=== PATIENT | male | born 1965 | race Caucasian/White ===

== ENCOUNTER → 2020-05-28 09:25 | Outpatient (CLI) | payer OTHER, SELFPAY ==
[2020-05-05 16:12] VITALS: BMI 24.2
--- NOTE | 2020-05-28 09:32 | STE_ITS ---
Reason For Study: CHEST PAIN Stress Results Protocol: Gerry Protocol Maximum Predicted HR: 167 bpm Target HR: 142 bpm % Maximum Predicted HR: 89 % DurationHeart Rate Stage (mm:ss) (bpm) BP Comment BASELINE 50 134/84 STAGE 1 3:00 80 140/74 STAGE 2 3:00 90 162/64 STAGE 3 3:00 100 158/70 STAGE 4 3:00 116 178/72 STAGE 5 2:30 148 174/62INCREASED SOB, NO CHEST PAIN RECOVERY 77 130/72 Stress Duration: 14:30 mm:ss Maximum Stress HR: 148 bpm METS: 17 Baseline Echocardiogram Findings Stress Echo Wall motion Data Resting WM Intermediate WM Stress WM Resting Wall Motion Wall Motion Stress All segments Normal. All segments Hyperkinetic. Ejection Fraction 55 %. Ejection Fraction 70 %. Stress Results Heart rate response: Appropriate Blood pressure response: Normal resting blood pressure-appropriate response Arrhythmias: Rare PVCs/ventricular couplets during exercise and recovery Functional capacity: Good Stopped secondary to: Dyspnea. EKG Data Baseline ECG: Sinus bradycardia. Peak exercise ECG: Somatic/motion artifact with no obvious ECG changes. Symptoms with Stress No complaint of chest discomfort during exercise or recovery. Interpretation Summary 1. Negative (adequate) stress echocardiogram Ordering Physician: Abe Dumont Referring Physician: Abe Dumont Performed By: Bertha Parr, RDCS, RVT
== END ==
PROVIDERS: PCP Internal Medicine; Referring Provider Internal Medicine Cardiovascular Disease; Visit Provider Internal Medicine Cardiovascular Disease
DX: R07.89 Other chest pain (principal); I49.49 Other premature depolarization; I34.1 Nonrheumatic mitral (valve) prolapse
CPT/HCPCS: 93017; 93350

== ENCOUNTER 2022-07-29 10:02 | Observation (INO) | payer OTHER, SELFPAY ==
[2022-07-29] VITALS (10 sets, daily range): BP systolic 111–160; BP diastolic 68–95; PULSE 49–68; RESP 15–18; TEMP 35.9–37.1; O2SAT 97–100; BMI 25.4; BMI 24.3
--- NOTE | 2022-07-29 10:10 | CT_ITS ---
EXAM: CT HEAD WITHOUT INTRAVENOUS CONTRAST CLINICAL INDICATION: paresthesias left side TECHNIQUE: Multiple axial images were obtained of the head without intravenous contrast. This CT exam was performed using one or more of the following dose reduction techniques: automated exposure control, adjustment of the mA and/or kV according to patient size, and/or use of iterative reconstruction technique. This report was created using [employer] report generation technology. COMPARISON: None. FINDINGS: BRAIN AND EXTRA-AXIAL SPACES: Normal. No intra- or extra-axial hemorrhage. No evidence of acute infarct. No intracranial mass or mass effect. There is preservation of the dewey/white matter interface. Posterior fossa structures are unremarkable. Ventricles are appropriate for age. No hydrocephalus. Basal cisterns are patent. BONES/JOINTS: Normal. No discrete lytic or blastic abnormalities. SINUSES: Unremarkable as visualized. No acute sinusitis. MASTOID AIR CELLS: Normal. Clear. ORBITS: Visualized globes, extraocular muscles, optic nerves and retrobulbar fat appear unremarkable. SELLA: Incidentally noted is an empty sella. CT/Brain/Head without Contrast IMPRESSION: No acute intracranial abnormality. Electronically Signed: Justin Salgado MD at 11:03 EDT ,
--- NOTE | 2022-07-29 10:10 | CT_ITS ---
INDICATION: chest pain, left sided neuro sx EXAMINATION: CTA HEAD - CTA Head and Neck W/ Contrast Injection (and W/O Contrast Images if performed) TECHNIQUE: [place]/head CT angiogram protocol was performed following IV contrast. Routine carotid CT angiogram protocol was performed without and with IV contrast. NASCET criteria using the distal ICAs for comparison were used for evaluation of stenoses. 3D reconstructions were reviewed of the CT angiogram head and neck. A radiation dose optimization technique was used for this scan. IV Contrast dosage and agent: 100 cc Isovue-300 COMPARISON: None. FINDINGS: --Anterior cerebral circulation: ACAs: No significant stenosis at the visualized segments. ACOM: Present. MCAs: No significant stenosis at the visualized segments. 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 BASILAR ARTERY: No significant stenosis. --Carotid and vertebral circulation: AORTIC ARCH AND BRANCHES: Left common carotid artery arises from a common trunk with the right innominate artery. RIGHT CCA: No occlusion, significant stenosis or dissection. RIGHT ICA: Minimal calcific plaquing. No occlusion, significant stenosis or dissection. LEFT CCA: No occlusion, significant stenosis or dissection. LEFT ICA: Minimal calcific plaquing. No occlusion, significant stenosis or dissection. RIGHT VERTEBRAL ARTERY: No occlusion, significant stenosis or dissection. LEFT VERTEBRAL ARTERY: No occlusion, significant stenosis or dissection. NECK SOFT TISSUES: Unremarkable. LUNG APICES: Clear. BONES: Unremarkable. CT/CTA Head AND Neck W/ Contrast IMPRESSION: No evidence of arterial stenosis, occlusion, dissection or intracranial aneurysm. Electronically Signed: Justin Salgado MD at 11:36 EDT ,
--- NOTE | 2022-07-29 10:10 | CT_ITS ---
EXAM: CT ANGIOGRAPHY CHEST WITH INTRAVENOUS CONTRAST CLINICAL INDICATION: chest/LUE/LLE TECHNIQUE: Helically acquired angiography images were obtained of the chest with intravenous contrast. This CT exam was performed using one or more of the following dose reduction techniques: automated exposure control, adjustment of the mA and/or kV according to patient size, and/or use of iterative reconstruction technique. This report was created using [employer] report generation technology. MIP reconstructed images were created and reviewed. CONTRAST: IV 100mL Isovue-300 COMPARISON: None. FINDINGS: PULMONARY ARTERIES: Normal. Normal in caliber. No evidence of pulmonary embolism. AORTA: Normal. Normal in caliber. No evidence of dissection. GREAT VESSELS OF AORTIC ARCH: Normal. Normal in caliber. No evidence of dissection. LUNGS AND PLEURAL SPACES: Normal. No mass. No consolidation or edema. No pleural effusion or thickening. No pneumothorax. HEART: Normal. Heart size is normal. No pericardial effusion. No signs of right heart strain, ratio of right ventricle to left ventricle measures less than 1. MEDIASTINUM: Normal. No mediastinal or hilar adenopathy. Esophagus is unremarkable. No hiatal hernia. THYROID: Normal. No thyroid lesions. BONES/JOINTS: Chronic mild superior endplate compression deformity of T11 vertebral body. No suspicious lytic or blastic abnormality. CT/CTA Chest W/WO Contrast IMPRESSION: No acute cardiopulmonary abnormality. No evidence of acute pulmonary embolism Electronically Signed: Justin Salgado MD at 11:25 EDT Reading Location ID and State: [facility] / [place] Tel , Service support ,
--- NOTE | 2022-07-29 10:10 | EKG12_ITS ---
Test Reason : CP Blood Pressure : / mmHG Vent. Rate : 054 BPM Atrial Rate : 054 BPM P-R Int : 202 ms QRS Dur : 096 ms QT Int : 404 ms P-R-T Axes : 056 -14 043 degrees QTc Int : 383 ms Sinus bradycardia Otherwise normal ECG Confirmed by PHAM PRIDE, GINNA ([id number]), online editor AUGUSTINE GAO ([id number]) on 07/31/2022 9:29:45 AM Referred By: GRACE Confirmed By:GINNA NATH MD
--- NOTE | 2022-07-29 10:14 | EDS_ITS ---
HPI History of Present Illness Chief Complaint: Chest Pain Informant: patient Onset/Context/Timing Onset: Hours (3) Activity at onset: sudden and onset (Awoke with symptoms at 8 AM) Timing: Continuous Quality: Positive for Pain Location: Left Chest Current Severity: Severe Maximum Severity: Severe Worsened By: Breathing Relieved By: Nothing Associated Symptoms: Positive for Dyspnea and - (left arm and thigh pain and paresthesias. My mild diffuse headache.); Negative for Nausea, Vomiting, Diaphoresis, Cough, Fever, Lightheadedness or Palpitations Narrative Narrative: Patient awoke this morning with severe pleuritic pain in his chest, radiating into his left arm and his left leg, no pain in the abdomen or back. Pain has gotten severe. He feels like there is some tingling in his left leg and left arm feels cold. Denies any fall, injury. Had a stress test several years ago that was negative never had a heart cath. Follows with cardiology for mitral valve prolapse and an irregular heartbeat. Not anticoagulated for any reason. Former smoker, he stopped this past summer. [facility] Medical History (Updated 07/29/22 @ 15:[address] Pio Orozco MD) Bursitis of right knee Ectopic cardiac beats Mass of right knee Mitral valve prolapse Primary osteoarthritis of right knee Home Medications aspirin 81 mg tablet,delayed release 81 mg PO DAILY 08/29/17 [History Last Taken Unknown] ibuprofen 200 mg tablet (Motrin IB) 200 mg PO DAILY PRN 05/09/19 [History Last Taken Unknown] metoprolol succinate 25 mg tablet,extended release 24 hr 25 mg PO DAILY #90 tabs 02/23/22 [Rx Last Taken Unknown] Allergy/AdvReac Type Severity Reaction Status Date / Time No Known Allergies Allergy Verified 07/29/22 10:03 Family History Mother Fibromyalgia Osteoporosis Father Diabetes Surgical History H/O bursectomy Social History (Updated 07/29/22 @ 10:[address] Pio Orozco MD) Smoking Status: Former smoker alcohol intake: current caffeine: Yes Type: carbonated beverages and coffee ROS ROS ED Constitutional Constitutional ED: Denies chills or fever(s) Eyes Eyes: Denies change in vision or diplopia ENT ENT ED: Denies rhinorrhea or sore throat Cardiovascular Cardiovascular: Reports chest pain; Denies palpitations or racing heartbeat Respiratory/Chest Respiratory/Chest: Reports dyspnea; Denies cough Gastrointestinal Gastrointestinal: Denies abdominal pain, diarrhea, nausea or vomiting Genitourinary Genitourinary ED: Reports as per HPI and scrotal pain; Denies difficulty urinating, dribbling, dysuria or hematuria Musculoskeletal Musculoskeletal: Reports as per HPI and extremity pain; Denies back pain or neck pain Integumentary Denies abscess or rash Neurologic Neurologic: Reports paresthesias LUE and LLE; Denies headache(s) or weakness Psychiatric Psychiatric: Denies anxiety or suicidal thoughts EXAM Physical Exam Const Vital Signs: 07/29/22 10:03 07/29/22 10:07 07/29/22 10:15 Temperature 96.6 F L Temperature Source Temporal Pulse Rate 57 L Respiratory Rate 16 Blood Pressure 160/95 H Blood Pressure Mean 116 Pulse Ox 100 Oxygen Delivery Method Room Air Room Air 07/29/22 12:05 07/29/22 14:13 Temperature Temperature Source Pulse Rate 54 L 51 L Respiratory Rate 16 15 Blood Pressure 120/80 111/82 H Blood Pressure Mean 93 91 Pulse Ox 98 98 Oxygen Delivery Method Room Air Room Air Positive well nourished and well developed General Appearance ED: well developed and NAD HEENT Reports moist mucous membranes normocephalic and atraumatic Eyes PERRL and EOMs intact bilaterally Neck full ROM, supple and no JVD Neck Narrative: No carotid bruits. Chest Wall inspection of chest normal and palpation of chest normal Resp normal respiratory effort and clear to auscultation bilaterally Cardio regular rate, regular rhythm and peripheral pulses 2+ throughout Cardio Narrative: Delayed cap refill left upper extremity, but symmetric 2+ radial pulse. Symmetric 2+ dorsalis pedis pulses bilaterally. GI non-tender and non-distended Auscultation: normoactive bowel sounds Palpation: soft Back/Spine no CVA tenderness General Back: other FROM Extremity normal to inspection General Extremety ED: Negative for edema, pulses abnormal or tenderness General Extremity: Negative for edema or pulses abnormal Neuro oriented x3 and CN's II-XII intact bilaterally Neuro Narrative: No gross sensory deficit but subjective decrease sensation left lower extremity. No weakness. Normal speech. No hemineglect. NIHSS of 1 for sensation only. Sensorium / Orientation: awake and alert Motor Exam: strength 5/5 throughout Psych mental status grossly normal Skin no rashes or lesions noted and no wounds Heart Score History: Moderately Suspicious ECG: Normal Age: >45 - <65 years Risk Factors: 1 or 2 Risk Factors Score: 3 MDM MDM MDM Narrative Medical decision making narrative: Given that the patient is having pain along with the left-sided paresthesias, I am more concerned about aortic dissection that I am a stroke. We obtained an EKG does not show a STEMI or anything acute, I then called CT to have them perform CT angiography of the chest stat, and while he was there, also obtained a head and neck. All of this returned negative and normal. Patient was given morphine for his pain, did take the edge off but he was still having discomfort especially when he takes a deep breath, he was then given Toradol. I reexamined the patient, abdomen completely benign no pulsatile mass equal pulses throughout all 4 extremities, comfortable, stable vital signs a little hypertensive, 100% on room air. Given all of this, I suspect that he has pleurisy, however the pain radiating to his extremities and paresthesias I do not have a great explanation for, and his BP was in the 160s for awhile here, although it has come down to 111/82 now. If he had an MRI of the brain to rule out acute stroke, then I think he can be discharged home. Of note, the patient woke up with the symptoms at 8 AM, and he is not a tPA candidate partially because of timing, but more because of nondisabling deficits. For this reason I did not call a stroke alert on this patient who I was more concerned about having an aortic dissection at the time. Since it is during the day and on the weekend, so we called MRI for stat MRI of the brain, but they stated they are not retail wireless sales consultant for acute stroke and recommend admitting the patient. Lab Data Attestation: I reviewed the patient's lab results. Labs: Laboratory Results - last 24 hr 07/29/22 07/29/22 07/29/22 10:05 10:05 10:05 WBC 5.8 RBC 4.59 L Hgb 14.6 Hct 42.1 MCV 91.7 MCH 31.8 MCHC 34.7 RDW Std Deviation 45.3 H RDW Coeff of Jett 13.4 Plt Count 210 MPV 9.3 Immature Gran % (Auto) 0.500 Neut % (Auto) 65.8 Lymph % (Auto) 22.4 [place] % (Auto) 10.1 H Eos % (Auto) 0.9 Baso % (Auto) 0.3 Absolute Neuts (auto) 3.8 Absolute Lymphs (auto) 1.29 Nucleated RBC % 0 PT 12.7 INR 1.0 APTT 28.4 Sodium 135 L Potassium 4.7 Chloride 101 Carbon Dioxide 28.0 Anion Gap 6 BUN 8 Creatinine 0.92 Estim Creat Clear Calc 102.53 Est GFR (MDRD) Af Amer 110 Est GFR (MDRD) Non-Af 91 BUN/Creatinine Ratio 8.7 L Glucose 89 Calcium 8.4 L Troponin I High Sens 6 07/29/22 12:10 WBC RBC Hgb Hct MCV MCH MCHC RDW Std Deviation RDW Coeff of Jett Plt Count MPV Immature Gran % (Auto) Neut % (Auto) Lymph % (Auto) [place] % (Auto) Eos % (Auto) Baso % (Auto) Absolute Neuts (auto) Absolute Lymphs (auto) Nucleated RBC % PT INR APTT Sodium Potassium Chloride Carbon Dioxide Anion Gap BUN Creatinine Estim Creat Clear Calc Est GFR (MDRD) Af Amer Est GFR (MDRD) Non-Af BUN/Creatinine Ratio Glucose Calcium Troponin I High Sens 6 Radiography Diagnostic Testing: Clinical Impression(s) from Imaging Studies Brain CT 07/29/22 10:10 IMPRESSION: No acute intracranial abnormality. Electronically Signed: Justin Salgado MD at 11:03 EDT , Chest CTA 07/29/22 10:10 IMPRESSION: No acute cardiopulmonary abnormality. No evidence of acute pulmonary embolism Electronically Signed: Justin Salgado MD at 11:25 EDT , Head/Neck CTA 07/29/22 10:10 IMPRESSION: No evidence of arterial stenosis, occlusion, dissection or intracranial aneurysm. Electronically Signed: Justin Salgado MD at 11:36 EDT , Rhythm Strip Rhythm Strip: Sinus Rhythm Rate: 55 Ectopy: None EKG Initial EKG: Attestation: I personally reviewed and interpreted this EKG as follows: Interpretation: Sinus Rhythm and No Acute Injury Pattern Discharge Plan Dx/Rx/DC Orders Clinical Impression: Pleurisy, Headache, Accelerated hypertension, Paresthesia of left upper and lower extremity Disposition Disposition: Acute Care Hospital [facility]
[2022-07-29] MEDS: Morphine 4 MG/ML Syringe IV ×2 (10:19→11:32)
[2022-07-29 10:28] LABS: Prothrombin Time (Protime)PT. 12.7 SECONDS (11.7-14.9)
[2022-07-29 10:29] LABS: Partial Thromboplast Time 28.4 Seconds (24.1-36.2)
[2022-07-29 10:34] LABS: Absolute Lymphocyte Count 1.29 X10^3/uL (0.83-4.51); Absolute Neutrophil Count 3.8 X10^3/uL (2.0-7.7); Basophil# 0.02 X10^3/uL; Basophil% 0.3 % (0-1); Eosinophil# 0.05 X10^3/uL; Eosinophils% 0.9 % (0-5); Hematocrit 42.1 % (40-54); Hemoglobin 14.6 g/dL (13.0-16.5); Lymphocyte # 1.29 X10^3/ul (0.83-4.51); Lymphocyte % 22.4 % (19-41); Mean Corp Hgb Conc 34.7 g/dL (32-36); Mean Corpuscular Hgb 31.8 pg (27.0-32.0); Mean Corpuscular Volume 91.7 fL (80-94); Mean Platelet Vol. 9.3 fl (6.2-12.0); Monocyte# 0.58 X10^3/uL; Monocyte% 10.1 % (0-10); NRBC Flagged by Analyzer 0 % (0-5); Neutrophil # 3.78 X10^3/uL (2.7-7.7); Neutrophil % 65.8 % (47-70); Platelet Count 210 K/mm3 (150-450); RBC Distribution Width CV 13.4 % (11.6-14.6); RBC Distribution Width SD 45.3 fl (35.1-43.9); Red Blood Count 4.59 M/mm3 (4.6-6.2); White Blood Count 5.8 K/mm3 (4.4-11.0)
[2022-07-29 10:36] LABS: Anion Gap 6 (5-15); BUN 8 mg/dL (7-18); BUN/Creat Ratio 8.7 RATIO (10-20); Calcium,Total 8.4 mg/dL (8.5-10.1); Chloride 101 mmol/L (98-107); Creatinine, Serum 0.92 mg/dL (0.70-1.30); EST Glomerular Filtration Rate 91 mL/min (>60); Est Glom Filt Rate - Afr Amer 110 mL/min (>60); Estimated Creatinine Clearance 102.53 ml/min; Glucose 89 mg/dL (74-106); Potassium 4.7 mmol/L (3.5-5.1); Sodium Level 135 mmol/L (136-145); Troponin-I HS (w/2H Reflex) 6 pg/mL (3.0-78.0)
[2022-07-29] MEDS: Ketorolac 15 MG/ML Vial IV ×2 (12:03→18:34)
[2022-07-29 12:16] LABS: Reflex Troponin-HS? (from REC) Y
[2022-07-29 12:36] LABS: Troponin-I HS 6 pg/mL (3.0-78.0)
--- NOTE | 2022-07-29 16:30 | HP.PCM.HOS_ITS ---
HPI - General General Date of Admission: 07/29/22 HPI Narrative PRIYANKA JIM, is a 56 M who presents to the hospital with chest pain as well as left arm pain and left leg pain. There is also some report about paresthesias on admission initially the plan was to get an MRI of his brain to rule out a stroke however this cannot be done today. He has significant pain to palpation of his chest but he denies any trauma to his chest or extremities yesterday or today. He states last night he had to do some work with the horses and also clean and waxed his car but not have any pain. This morning he woke up with the pain. A CTA of his chest was negative for an aortic dissection or PE, and on review of his chest wall, there is no obvious cause for this chest pain. Troponins were unremarkable and CT of the head and neck was normal. CT brain was negative for stroke. [facility] Medical History (Updated 07/29/22 @ 15:[address] Pio Orozco MD) Bursitis of right knee Ectopic cardiac beats Mass of right knee Mitral valve prolapse Primary osteoarthritis of right knee Home Medications aspirin 81 mg tablet,delayed release 81 mg PO DAILY 08/29/17 [History Last Taken Unknown] ibuprofen 200 mg tablet (Motrin IB) 200 mg PO DAILY PRN 05/09/19 [History Last Taken Unknown] metoprolol succinate 25 mg tablet,extended release 24 hr 25 mg PO DAILY #90 tabs 02/23/22 [Rx Last Taken Unknown] Allergy/AdvReac Type Severity Reaction Status Date / Time No Known Allergies Allergy Verified 07/29/22 10:03 Family History Mother Fibromyalgia Osteoporosis Father Diabetes Surgical History H/O bursectomy Social History (Updated 07/29/22 @ 10:[address] Pio Orozco MD) Smoking Status: Former smoker alcohol intake: current caffeine: Yes Type: carbonated beverages and coffee ROS Constitutional Constitutional: Denies chills, fatigue, fever(s) or malaise Eyes Eyes: Denies blurry vision ENT HEENT: Reports headache(s); Denies nasal discharge Cardiovascular Cardiovascular: Reports chest pain; Denies dyspnea on exertion or syncope Respiratory/Chest Respiratory/Chest: Denies cough, shortness of breath at rest or shortness of breath with exertion Gastrointestinal Gastrointestinal: Denies constipation, diarrhea, nausea or vomiting Genitourinary Genitourinary: Denies dysuria Musculoskeletal Musculoskeletal: Reports extremity pain Neurologic Neurologic: Denies focal weakness, numbness or tremor(s) Psychiatric Psychiatric: Denies anxiety or depression Vital Signs Vital Signs Vital Signs: 07/29/22 10:03 07/29/22 10:07 07/29/22 10:15 Temperature 96.6 F L Temperature Source Temporal Pulse Rate 57 L Respiratory Rate 16 Blood Pressure 160/95 H Blood Pressure Mean 116 Pulse Ox 100 Oxygen Delivery Method Room Air Room Air 07/29/22 12:05 07/29/22 14:13 07/29/22 16:07 Temperature 98.8 F Temperature Source Temporal Pulse Rate 54 L 51 L 49 L Respiratory Rate 16 15 18 Blood Pressure 120/80 111/82 H 139/80 H Blood Pressure Mean 93 91 99 Pulse Ox 98 98 98 Oxygen Delivery Method Room Air Room Air Room Air Weight Weight: 193 lb 5.526 oz Body Mass Index (BMI) 25.4 Physical Exam Narrative General: Alert, Oriented x3, Cooperative, No apparent distress HEENT: Atraumatic, PERRLA, EOMI, Normocephalic Oral: Moist Mucosa Neck: Supple, No JVD Lungs: Clear to auscultation, Normal air movement, No rhonchi, No wheeze, No rales Cardiovascular: Regular rate, Regular Rhythm, Normal S1, Normal S2, No murmurs, he does have pain to palpation which reproduces his chest pain on the left Abdomen: Soft, Non Tender, Non-Distended, No Hepato-splenomegaly Extremities: No edema, Capillary Refill Less than 3 Seconds Skin: No rashes, No breakdown Musculoskeletal: No Tenderness to Palpation of Joints or Extremities Neurological: Cranial nerves II-XII grossly intact, Motor Exam 5/5 strength throughout, Sensory exam intact to light touch and pain Psych/Mental Status: Flat affect, Appropriate Results Lab / Micro Data Result Diagrams: 07/29/22 10:05 07/29/22 10:05 Labs: Laboratory Results - last 24 hr 07/29/22 10:05: WBC 5.8, RBC 4.59 L, Hgb 14.6, Hct 42.1, MCV 91.7, MCH 31.8, MCHC 34.7, RDW Std Deviation 45.3 H, RDW Coeff of Jett 13.4, Plt Count 210, MPV 9.3, Immature Gran % (Auto) 0.500, Neut % (Auto) 65.8, Lymph % (Auto) 22.4, [place] % (Auto) 10.1 H, Eos % (Auto) 0.9, Baso % (Auto) 0.3, Absolute Neuts (auto) 3.8, Absolute Lymphs (auto) 1.29, Nucleated RBC % 0 07/29/22 10:05: Sodium 135 L, Potassium 4.7, Chloride 101, Carbon Dioxide 28.0, Anion Gap 6, BUN 8, Creatinine 0.92, Estim Creat Clear Calc 102.53, Est GFR (MDRD) Af Amer 110, Est GFR (MDRD) Non-Af 91, BUN/Creatinine Ratio 8.7 L, Glucose 89, Calcium 8.4 L, Troponin I High Sens 6 07/29/22 10:05: PT 12.7, INR 1.0, APTT 28.4 07/29/22 12:10: Troponin I High Sens 6 Rhythm Strip Rhythm Strip: Sinus Rhythm Rate: 55 Ectopy: None Radiology Impression Brain CT 07/29/22 10:10 IMPRESSION: No acute intracranial abnormality. Electronically Signed: Justin Salgado MD at 11:03 EDT , Chest CTA 07/29/22 10:10 IMPRESSION: No acute cardiopulmonary abnormality. No evidence of acute pulmonary embolism Electronically Signed: Justin Salgado MD at 11:25 EDT , Head/Neck CTA 07/29/22 10:10 IMPRESSION: No evidence of arterial stenosis, occlusion, dissection or intracranial aneurysm. Electronically Signed: Justin Salgado MD at 11:36 EDT , Assessment & Plan Assessment/Plan (1) Paresthesia of left upper and lower extremity: (2) Pleurisy: PLAN: Plan 1. Pleurisy with possible CVA ? We will obtain an MRI to rule out CVA however differential is low for this diagnosis ? He does have palpatory pain to the left chest that is reproducing the pain he is feeling ? Troponins are negative x2 and EKG is unremarkable ? We will continue with Toradol ? Denies any trauma and CT scan does not show any obvious diagnosis 2. HTN ? Blood pressure is stable ? Can resume his home metoprolol ? Continue with his home aspirin DVT: Ambulation Charges/Coding Visit Charges OBSV E&M: 34198 Initial observation care L2
--- NOTE | 2022-07-29 18:05 | EKG12_ITS ---
Test Reason : CP Blood Pressure : / mmHG Vent. Rate : 050 BPM Atrial Rate : 050 BPM P-R Int : 204 ms QRS Dur : 104 ms QT Int : 422 ms P-R-T Axes : 073 -12 054 degrees QTc Int : 384 ms Sinus bradycardia Confirmed by PHAM PRIDE, GINNA ([id number]), food editor AUGUSTINE GAO ([id number]) on 08/02/2022 9:42:29 AM Referred By: DINA Confirmed By:GINNA NATH MD
[2022-07-30 00:23] VITALS: BMI 24.3
[2022-07-30 01:22] VITALS: BP 153/87; PULSE 56; RESP 18; TEMP 36.6; O2SAT 96
[2022-07-30] MEDS: Ketorolac 15 MG/ML Vial IV ×2 (01:45→08:32)
[2022-07-30] MEDS: 0.9% Saline Lock 10 ML Syringe IV ×2 (01:47→08:32)
[2022-07-30 03:00] VITALS: PULSE 68
[2022-07-30 05:22] VITALS: BP 137/79; PULSE 56; RESP 16; TEMP 36.5; O2SAT 96
[2022-07-30 07:00] VITALS: PULSE 56
[2022-07-30 07:06] LABS: Absolute Neutrophil Count 4.4 X10^3/uL (2.0-7.7); Basophil# 0.02 X10^3/uL; Basophil% 0.3 % (0-1); Eosinophil# 0.03 X10^3/uL; Eosinophils% 0.5 % (0-5); Hematocrit 42.9 % (40-54); Hemoglobin 14.8 g/dL (13.0-16.5); Lymphocyte % 17.4 % (19-41); Mean Corp Hgb Conc 34.5 g/dL (32-36); Mean Corpuscular Hgb 32.4 pg (27.0-32.0); Mean Corpuscular Volume 93.9 fL (80-94); Mean Platelet Vol. 8.8 fl (6.2-12.0); Monocyte# 0.73 X10^3/uL; Monocyte% 11.6 % (0-10); NRBC Flagged by Analyzer 0 % (0-5); Neutrophil # 4.41 X10^3/uL (2.7-7.7); Neutrophil % 69.7 % (47-70); Platelet Count 178 K/mm3 (150-450); RBC Distribution Width CV 13.6 % (11.6-14.6); RBC Distribution Width SD 46.7 fl (35.1-43.9); Red Blood Count 4.57 M/mm3 (4.6-6.2); White Blood Count 6.3 K/mm3 (4.4-11.0)
[2022-07-30 07:30] LABS: Anion Gap 6 (5-15); BUN 17 mg/dL (7-18); BUN/Creat Ratio 16.7 RATIO (10-20); Calcium,Total 8.5 mg/dL (8.5-10.1); Chloride 108 mmol/L (98-107); Cholesterol 187 mg/dL (200); Creatinine, Serum 1.02 mg/dL (0.70-1.30); EST Glomerular Filtration Rate 80 mL/min (>60); Est Glom Filt Rate - Afr Amer 97 mL/min (>60); Estimated Creatinine Clearance 92.48 ml/min; Glucose 88 mg/dL (74-106); High Density Lipoprotein 90 mg/dL; Potassium 4.4 mmol/L (3.5-5.1); Sodium Level 140 mmol/L (136-145); Triglycerides 81 mg/dL; Very Low Density Lipoprotein 16 mg/dL (5-40)
--- NOTE | 2022-07-30 08:00 | MRI_ITS ---
HISTORY: left sided numbness, chest pain. TECHNIQUE: Multiplanar and multisequence MR images of the brain were obtained without contrast. 276 images. COMPARISON: CT prior day. FINDINGS: BRAIN PARENCHYMA: No significant signal abnormality in the brain parenchyma. No abnormal focus of restricted diffusion. No acute intracranial hemorrhage identified. CSF SPACES: Cerebral ventricles, cortical sulci, and other extra-axial CSF spaces within normal limits in size. No significant midline shift or other mass effect. Partially empty sella configuration. No extra-axial fluid collection. VASCULAR SYSTEM: Major intracranial flow voids are maintained. PARANASAL SINUSES AND MASTOID AIR CELLS: No significant air fluid levels. ORBITS: Symmetric contents. MRI/Brain without Contrast IMPRESSION: No evidence for acute infarct or other significant signal abnormality in the brain. Electronically Signed: Citlalli English MD at 10:20 EDT ,
[2022-07-30] MEDS: Aspirin 81 MG TAB.CHEW PO (08:30)
--- NOTE | 2022-07-30 08:47 | NURSING ---
Pt leaving floor via wheelchair for MRI. shelter monitor removed for testing. shelter monitor will be placed back on pt when they return from MRI.
[2022-07-30 09:40] VITALS: BP 140/87; PULSE 63; RESP 16; TEMP 36.5; O2SAT 99
--- NOTE | 2022-07-30 09:57 | NURSING ---
NIH done late due to patient off floor for MRI; NIH was completed when patient returned to the room.
--- NOTE | 2022-07-30 10:45 | DCINST_ITS ---
Discharge Instructions Diet Discharge Diet: No restrictions Activity Discharge Activity: Return to Normal Activity Weight Bearing Status: Full weight bearing Follow Up Care Test Results: Test results from this visit will be discussed in further detail at your follow- up appointment, if applicable. Discharge Plan Admission Admit Date/Time: 07/29/22 15:53 Primary Reason for Your Visit: costochondritis Attending Provider: Romulo Muller Primary Care Provider: [facility]aba,Out of Consulting Providers: Randell Whatley Instructions Additional Instructions / Restrictions: Get a small bottle of omeprazole 20 mg over the counter, take one daily while you are on Prednisone See your family physcian in two weeks or before if your symptoms worsen Discharge Orders/Prescriptions Prescriptions: New ibuprofen 800 mg tablet 800 mg PO TID PRN (Reason: pain) Qty: 21 0RF Rx Instructions: take three times a day as needed for chest pain prednisone 20 mg tablet 20 mg PO DAILY Qty: 9 0RF Rx Instructions: one twice a day for two days, then one per day for 5 days, then stop Continued aspirin 81 MG tablet,delayed release (DR/EC) 81 mg PO DAILY metoprolol succinate 25 mg tablet extended release 24 hr 25 mg PO DAILY Qty: 90 3RF Discontinued ibuprofen [Motrin IB] 200 mg tablet 200 mg PO DAILY Referrals / Follow Up: [facility] Doctor,Out of [Primary Care Provider] - Disposition Disposition (needs filled in before D/C Order can be placed): Home, Self Care
[2022-07-30 11:00] VITALS: O2SAT 97
--- NOTE | 2022-07-30 11:01 | DS.PCM_ITS ---
Providers Date of Admission: 07/29/22 Date of Discharge: 07/30/22 Primary Care Physician: Out of Town Doctor Reason For Visit: CVA R/O Diagnosis Discharge Diagnosis (1) Paresthesia of left upper and lower extremity: Status: Acute Code(s): R20.2 - Paresthesia of skin (2) Pleurisy: Status: Acute Code(s): R09.1 - Pleurisy Plan 1. Acute costochondritis #2 left arm and leg pain-etiology unclear #3 left arm and leg paresthesias-etiology unclear #4 osteoarthritis #5 mitral valve prolapse by history Medications at Discharge Home Medications aspirin 81 mg tablet,delayed release 81 mg PO DAILY 08/29/17 metoprolol succinate 25 mg tablet,extended release 24 hr 25 mg PO DAILY #90 tabs 02/23/22 ibuprofen 800 mg tablet 800 mg PO TID PRN pain #21 tabs 07/30/22 prednisone 20 mg tablet 20 mg PO DAILY #9 tabs 07/30/22 Hospital Course Operations None Procedures None Summary of Care Provided Minutes Spent on Discharge: 30 Hospital Course: This 56-year-old white male was seen in the emergency room at [facility] with a chief complaint of severe chest pain as well as pain going down his left arm and left leg. Patient also complained of some paresthesias. CTA of the chest was negative for aortic dissection or PE, CTA of the head and neck were unremarkable, patient's troponins were normal. Patient was placed in observation status on PCU and troponins were cycled and they remain normal. Patient's chest pain was reproducible with palpation of the chest wall and felt to be secondary to costochondritis. Patient underwent an MRI on 07/30/2022 that was negative for any acute process. The etiology of the patient's left-sided pain and paresthesias was unknown. On 07/30/2022, patient was seen and examined: On examination he appeared in good health and spirits. Vital signs as documented. Skin warm and dry and without overt rashes. Neck without JVD, neck was supple, trachea midline, thyroid was normal. Lungs clear bilaterally, normal air movement was noted. Heart exam notable for regular rhythm, normal sounds and absence of murmurs, rubs or gallops. Abdomen unremarkable and without evidence of organomegaly, masses, or abdominal aortic enlargement. Bowel sounds are present, abdomen is not distended. Extremities nonedematous, no cyanosis was noted, no clubbing was noted. Neuro: Cranial nerves II through XII are grossly intact, no focal motor deficits were noted, sensation to light touch and pinprick intact, motor exam 5/5 throughout. Psych: Patient is alert and oriented x3, he does not appear anxious or depressed, he does not appear agitated. Patient was felt to be stable for discharge on 07/30/2022. Patient was given a prescription for prednisone and ibuprofen for presumed costochondritis, he was instructed to obtain [id number] omeprazole 20 mg to take once a day when he was on the prednisone. Weight / BMI Weight Weight: 83.6 kg Body Mass Index (BMI) 24.3 ABG / Lab / Microbiology Data Result Diagrams: 07/30/22 06:50 07/30/22 06:50 Laboratory: Laboratory Results - last 24 hr 07/29/22 10:05: PT 12.7, INR 1.0, APTT 28.4 07/29/22 12:10: Troponin I High Sens 6 07/30/22 06:50: WBC 6.3, RBC 4.57 L, Hgb 14.8, Hct 42.9, MCV 93.9, MCH 32.4 H, MCHC 34.5, RDW Std Deviation 46.7 H, RDW Coeff of Jett 13.6, Plt Count 178, MPV 8.8, Immature Gran % (Auto) 0.500, Neut % (Auto) 69.7, Lymph % (Auto) 17.4 L, Mclennan % (Auto) 11.6 H, Eos % (Auto) 0.5, Baso % (Auto) 0.3, Absolute Neuts (auto) 4.4, Absolute Lymphs (auto) 1.10, Nucleated RBC % 0 07/30/22 06:50: Sodium 140, Potassium 4.4, Chloride 108 H, Carbon Dioxide 26.0, Anion Gap 6, BUN 17, Creatinine 1.02, Estim Creat Clear Calc 92.48, Est GFR (MDRD) Af Amer 97, Est GFR (MDRD) Non-Af 80, BUN/Creatinine Ratio 16.7, Glucose 88, Calcium 8.5, Triglycerides 81, Cholesterol 187, LDL Cholesterol 81, VLDL Cholesterol 16, HDL Cholesterol 90 Radiography Diagnostic Testing: Radiology Impression Brain CT 07/29/22 10:10 IMPRESSION: No acute intracranial abnormality. Electronically Signed: Justin Salgado MD at 11:03 EDT , Chest CTA 07/29/22 10:10 IMPRESSION: No acute cardiopulmonary abnormality. No evidence of acute pulmonary embolism Electronically Signed: Justin Salgado MD at 11:25 EDT , Head/Neck CTA 07/29/22 10:10 IMPRESSION: No evidence of arterial stenosis, occlusion, dissection or intracranial aneurysm. Electronically Signed: Justin Salgado MD at 11:36 EDT , Brain MRI 07/30/22 08:00 IMPRESSION: No evidence for acute infarct or other significant signal abnormality in the brain. Electronically Signed: Citlalli English MD at 10:20 EDT , D/C Instructions Discharge Diet: No restrictions Weight Bearing Status: Full weight bearing Meaningful Use Info Meaningful Use Diagnoses (Choose all that apply): None applicable Discharge Plan Admission Admit Date/Time: 07/29/22 15:53 Primary Reason for Your Visit: costochondritis Attending Provider: Romulo Muller Primary Care Provider: [facility] Doctor,Out of Consulting Providers: Randell Whatley Instructions Additional Instructions / Restrictions: Get a small bottle of omeprazole 20 mg over the counter, take one daily while you are on Prednisone See your family physcian in two weeks or before if your symptoms worsen Discharge Orders/Prescriptions Prescriptions: New ibuprofen 800 mg tablet 800 mg PO TID PRN (Reason: pain) Qty: 21 0RF Rx Instructions: take three times a day as needed for chest pain prednisone 20 mg tablet 20 mg PO DAILY Qty: 9 0RF Rx Instructions: one twice a day for two days, then one per day for 5 days, then stop Continued aspirin 81 MG tablet,delayed release (DR/EC) 81 mg PO DAILY metoprolol succinate 25 mg tablet extended release 24 hr 25 mg PO DAILY Qty: 90 3RF Discontinued ibuprofen [Motrin IB] 200 mg tablet 200 mg PO DAILY Referrals / Follow Up: [facility] Doctor,Out of [Primary Care Provider] - Disposition Disposition (needs filled in before D/C Order can be placed): Home, Self Care Charges/Coding Visit Charges OBSV E&M: 05537 Observation care discharge
[2022-07-30 12:09] VITALS: BMI 24.3
== END 2022-07-30 11:00 | disposition home or self-care (01) ==
LOC: ED 14:58 → PCU 07-30 07:32
PROVIDERS: Admitting Provider Family Medicine; Emergency Provider Emergency Medicine; Visit Provider Internal Medicine
DX: R20.2 Paresthesia of skin (principal); R00.2 Palpitations; M79.652 Pain in left thigh; R51.9 Headache, unspecified; M79.602 Pain in left arm; Z79.82 Long term (current) use of aspirin; Z87.891 Personal history of nicotine dependence; R09.1 Pleurisy; Z79.899 Other long term (current) drug therapy; I10 Essential (primary) hypertension; M19.90 Unspecified osteoarthritis, unspecified site
CPT/HCPCS: 36415; 70450; 70496; 70498; 70551; 71275; 80048; 80061; 84484; 85025; 85610; 85730; 92610; 93005; 94762; 96374; 96375; 96376; 99218; 99285; 99406; Q9967; A4216; G0378

== ENCOUNTER → 2023-04-17 | Outpatient (CLI) | payer OTHER, SELFPAY ==
--- NOTE | 2023-04-17 14:56 | ECHOD_ITS ---
Reason For Study: NONRHEUMATIC MV Procedure This was a 2D Doppler, Color Flow transthoracic echocardiogram. Exam performed in department. Left Ventricle Normal LV size. Left ventricular systolic function is normal. The estimated ejection fraction is 60 %. No regional wall motion abnormalities noted. Right Ventricle Normal RV size. Normal systolic function. Atria Normal left atrium. Normal right atrium. Mitral Valve Normal mitral valve. Tricuspid Valve Normal tricuspid valve. Aortic Valve Normal aortic valve. Trisinus/trileaflet aortic valve. Pulmonic Valve Normal pulmonic valve. Great Vessels Normal aortic root. The pulmonary artery is normal size. Normal inferior vena cava. Pericardium/Pleural No pericardial effusion. MMode/2D Measurements & Calculations LVIDd: 5.2 cm IVSd: 0.85 cm Ao root diam: 3.4 cm LVIDs: 3.3 cm LVPWd: 1.1 cm RVDd: 3.9 cm FS: 36.5 % LAV(MOD-bp): 68.1 ml LVAd ap4: 29.0 cm2 SV(MOD-sp4): 56.9 ml LAV(MOD-bp) Indexed: 32.4 ml/m2 LVLd ap4: 7.9 cm LAV(MOD-sp2): 80.8 ml EDV(MOD-sp4): 91.6 ml LAV(MOD-sp4): 51.5 ml EDV(sp4-el): 90.1 ml LVAs ap4: 16.1 cm2 LVLs ap4: 6.5 cm ESV(MOD-sp4): 34.7 ml ESV(sp4-el): 34.0 ml EF(MOD-sp4): 62.1 % EF(sp4-el): 62.3 % SV(sp4-el): 56.2 ml LA A4 area: 19.4 cm2 LA dimension(2D): 3.8 cm RA A4 area: 21.3 cm2 TAPSE: 2.8 cm Time Measurements MV dec time: 0.20 sec Doppler Measurements & Calculations MV E max zaki: 66.2 cm/sec Lat Peak E' Zaki: 12.5 cm/sec Med Peak E' Zaki: 10.5 cm/sec MV A max zaki: 54.6 cm/sec E/E' lat: 5.3 E/E' med: 6.3 MV E/A: 1.2 MV V2 max: 79.1 cm/sec Ao V2 max: 145.3 cm/sec MV max P.5 mmHg MV dec slope: 325.8 cm/sec2 Ao max P.5 mmHg MV V2 mean: 39.2 cm/sec Ao V2 mean: 100.4 cm/sec MV mean P.83 mmHg Ao mean P.6 mmHg MV V2 VTI: 28.0 cm Ao V2 VTI: 34.6 cm AV (velocity ratio): 0.89 LV V1 max: 136.0 cm/sec PA V2 max: 99.5 cm/sec LV V1 max P.4 mmHg PA V2 mean: 73.4 cm/sec LV V1 mean P.1 mmHg LV V1 mean: 95.9 cm/sec LV V1 VTI: 30.9 cm ECHO/Echo Complete Interpretation Summary Normal LV size. Left ventricular systolic function is normal. The estimated ejection fraction is 60 %. No regional wall motion abnormalities noted. Normal mitral valve. Ordering Physician: Monika Samuel Referring Physician: Monika Samuel Performed By: Shakira Arreola RCS
== END | disposition home or self-care (01) ==
LOC: CVS 14:46
PROVIDERS: Referring Provider Nurse Practitioner Gerontology; Visit Provider Nurse Practitioner Gerontology
DX: I34.1 Nonrheumatic mitral (valve) prolapse (principal)
CPT/HCPCS: 93306